=== PATIENT | female | born 1950 | race Caucasian/White ===

== ENCOUNTER 2023-09-02 15:01 | Outpatient (RCR) | payer OTHER, SELFPAY | END 2023-09-02 23:59 | disposition home or self-care (01) | LOC: RPT 15:01 | PROVIDERS: ATTENDING PHYSICIAN Nurse Practitioner | DX: N39.3 Stress incontinence (female) (male) (principal); M62.89 Other specified disorders of muscle; Z73.6 Limitation of activities due to disability | CPT/HCPCS: 97014; 97110; 97112; 97140; 97163; 97530 ==

== ENCOUNTER 2023-10-06 12:55 | Outpatient (RCR) | payer OTHER, SELFPAY | END 2023-10-06 23:59 | disposition home or self-care (01) | LOC: RPT 12:55 | PROVIDERS: ATTENDING PHYSICIAN Nurse Practitioner | DX: N39.3 Stress incontinence (female) (male) (principal); M62.89 Other specified disorders of muscle; Z73.6 Limitation of activities due to disability | CPT/HCPCS: 97014; 97112; 97140; 97530 ==

== ENCOUNTER 2023-11-03 13:05 | Outpatient (RCR) | payer OTHER, SELFPAY | END 2023-11-03 23:59 | disposition home or self-care (01) | LOC: RPT 13:05 | PROVIDERS: ATTENDING PHYSICIAN Nurse Practitioner | DX: N39.3 Stress incontinence (female) (male) (principal); M62.89 Other specified disorders of muscle; Z73.6 Limitation of activities due to disability | CPT/HCPCS: 97110; 97112; 97530 ==

== ENCOUNTER → 2023-11-05 13:28 | Outpatient (REF) | payer OTHER, SELFPAY ==
[2023-11-05 14:39] LABS: Urine Albumin Negative (Neg - Trace); Urine Bilirubin Negative (Negative); Urine Character Clear (Clear); Urine Color Yellow; Urine Glucose Negative (Negative); Urine Ketone Negative (Negative); Urine Leukocyte Negative (Negative); Urine Nitrite Negative (Negative); Urine Occult Blood Negative (Negative); Urine Urobilinogen Negative (Neg - 1+)
== END ==
LOC: CLAB 13:28
PROVIDERS: ATTENDING PHYSICIAN Urology
DX: R15.9 Full incontinence of feces (principal)
CPT/HCPCS: 36415; 81003; 87086

== ENCOUNTER → 2023-11-26 09:15 | Outpatient (REF) | payer OTHER, SELFPAY | LOC: HWRAD 09:15 | PROVIDERS: ATTENDING PHYSICIAN Urology; FAMILY PHYSICIAN Nurse Practitioner | DX: R15.9 Full incontinence of feces (principal); N39.3 Stress incontinence (female) (male); M62.89 Other specified disorders of muscle; N32.81 Overactive bladder; N30.10 Interstitial cystitis (chronic) without hematuria | CPT/HCPCS: 76770; 76856 ==

== ENCOUNTER 2023-12-04 06:36 | Outpatient (RCR) | payer OTHER, SELFPAY | END 2023-12-04 23:59 | disposition home or self-care (01) | LOC: RPT 06:36 | PROVIDERS: ATTENDING PHYSICIAN Nurse Practitioner | DX: N39.3 Stress incontinence (female) (male) (principal); M62.89 Other specified disorders of muscle; Z73.6 Limitation of activities due to disability | CPT/HCPCS: 97014; 97110; 97112; 97140; 97530 ==

== ENCOUNTER 2023-12-25 15:12 | Outpatient (RCR) | payer OTHER, SELFPAY | END 2023-12-25 23:59 | disposition home or self-care (01) | LOC: RPT 15:12 | PROVIDERS: ATTENDING PHYSICIAN Nurse Practitioner | DX: N39.3 Stress incontinence (female) (male) (principal); M62.89 Other specified disorders of muscle; Z73.6 Limitation of activities due to disability | CPT/HCPCS: 97112; 97140; 97530 ==

== ENCOUNTER 2024-01-22 13:56 | Outpatient (RCR) | payer OTHER, SELFPAY | END 2024-01-22 23:59 | disposition home or self-care (01) | LOC: RPT 13:56 | PROVIDERS: ATTENDING PHYSICIAN Nurse Practitioner | DX: N39.3 Stress incontinence (female) (male) (principal); M62.89 Other specified disorders of muscle; Z73.6 Limitation of activities due to disability | CPT/HCPCS: 97110; 97530 ==

== ENCOUNTER → 2024-07-01 13:15 | Outpatient (REF) | payer OTHER, SELFPAY | LOC: HWWDC 13:15 | PROVIDERS: ATTENDING PHYSICIAN Nurse Practitioner | DX: Z12.31 Encounter for screening mammogram for malignant neoplasm of breast (principal) | CPT/HCPCS: 77063; 77067 ==

== ENCOUNTER → 2024-09-16 15:39 | Outpatient (REF) | payer OTHER, SELFPAY | LOC: HWRAD 15:39 | PROVIDERS: ATTENDING PHYSICIAN Internal Medicine Critical Care Medicine; FAMILY PHYSICIAN Nurse Practitioner | DX: J45.30 Mild persistent asthma, uncomplicated (principal) | CPT/HCPCS: 71046 ==

== ENCOUNTER → 2024-11-25 10:51 | Outpatient (REF) | payer OTHER, SELFPAY | LOC: HWRAD 10:51 | PROVIDERS: ATTENDING PHYSICIAN Family Medicine | DX: J44.9 Chronic obstructive pulmonary disease, unspecified (principal); J45.991 Cough variant asthma | CPT/HCPCS: 71046 ==

== ENCOUNTER 2025-02-01 06:13 | Outpatient (RCR) | payer OTHER, SELFPAY | END 2025-02-01 23:59 | disposition home or self-care (01) | LOC: RPT 06:13 | PROVIDERS: ATTENDING PHYSICIAN Family Medicine | DX: N39.46 Mixed incontinence (principal); M62.89 Other specified disorders of muscle; Z73.6 Limitation of activities due to disability | CPT/HCPCS: 97163; 97530 ==

== ENCOUNTER 2025-02-14 11:04 | Outpatient (RCR) | payer OTHER, SELFPAY | END 2025-02-14 23:59 | disposition home or self-care (01) | LOC: RPT 11:04 | PROVIDERS: ATTENDING PHYSICIAN Family Medicine | DX: N39.46 Mixed incontinence (principal); M62.89 Other specified disorders of muscle; Z73.6 Limitation of activities due to disability | CPT/HCPCS: 97014; 97112; 97530 ==

== ENCOUNTER → 2025-03-02 10:48 | Outpatient (REF) | payer OTHER, SELFPAY | LOC: HWRAD 10:48 | PROVIDERS: ATTENDING PHYSICIAN Family Medicine | DX: Z78.0 Asymptomatic menopausal state (principal) | CPT/HCPCS: 77080 ==

== ENCOUNTER 2025-03-05 21:47 | Emergency (ER) | payer OTHER, SELFPAY ==
[2025-03-05 21:50] VITALS: BP 191/77
[2025-03-05 22:11] VITALS: BMI 24.2
--- NOTE | 2025-03-05 22:23 | EDRN ---
Pt says she was feeling lightheaded, brain foggy and nauseous. Pt's daughter suggested she take her bp - 162/65 at 1800. Pt thought she might be dehydrated so she drank water. Pt felt worse and checked her bp - 180/85 approximately. Pt called
doctor and was advised to be evaluated. Pt takes her metoprolol at nighttime and has not taken it yet. Pt has slight headache. No vomiting, fever/chills, speech disturbance. Pt says she has had trouble reading for few days - pt wears glasses and
adds her glasses are currently dirty. Pt's eyes have felt 'burny.'
[2025-03-05 22:31] VITALS: BP 170/60
[2025-03-05 22:46] VITALS: BP 161/70
[2025-03-05 22:46] LABS: % Basophils 0.2 % (0-2); % Eosinophils 0.8 % (0-6); % Immature Granulocytes 0.2 % (0-0.5); % Lymphocytes 32.6 % (20.5-51.1); % Monocytes 9.4 % (1.7-9.3); % Neutrophils 56.8 % (42.2-75.2); Absolute Lymphocytes 1.7 10^3/uL (1.2-3.4); Absolute Monocytes 0.5 10^3/uL (0.1-0.6); Absolute Neutrophils 2.9 10^3/uL (1.4-6.5); Hematocrit 35.4 % (37.0-47.0); Hemoglobin 12.3 g/dL (12.0-16.0); Mean Corp Hgb Conc. 34.7 g/dL (33.0-37.0); Mean Corpuscular Volume 86.3 fL (81.0-99.0); Mean Platelet Volume 9.7 fL (7.4-10.4); Nucleated Red Blood Cells % 0 %; Platelet Count 232 10^3/uL (130-400); Red Cell Dist. Width 12.2 % (11.5-14.5); White Blood Cell Count 5.1 10^3/uL (4.8-10.8)
[2025-03-05 23:00] VITALS: BP 164/62
[2025-03-05 23:09] LABS: ALT (SGPT) 16 U/L (0-35); AST (SGOT) 21 U/L (14-36); Albumin 4.1 g/dl (3.5-5.0); Alkaline Phosphatase 56 U/L (38-126); Blood Urea Nitrogen 13 mg/dl (7-17); Calcium 9.2 mg/dl (8.4-10.2); Carbon Dioxide 29 mmol/L (22-30); Chloride 102 mmol/L (98-107); Estimated Creatinine Clearance 57 ml/min; Glucose 91 mg/dl (70-99); Potassium 3.8 mmol/L (3.5-5.1); Sodium 135 mmol/L (135-145); Total Bilirubin 0.7 mg/dl (0.2-1.3); Total Protein 6.6 g/dl (6.3-8.2); eGFR > 60.00
--- NOTE | 2025-03-05 23:28 | ED.GENMED ---
History of Present Illness
General
Chief Complaint: Blood Pressure Problem
Source: patient
Exam Limitations: none
Time Seen by Provider: 03/05/25 23:12
Nursing documentation reviewed up to this point in time: agreed with
History of Present Illness
History of Present Illness:
75-year-old female with history as noted presents to the emergency room for evaluation of hypertension. Patient says that this evening she was feeling 'not quite right' and so she checked her blood pressure and it was very high which prompted her
to come to the ER. Patient reports that she had mild headache and felt mildly lightheaded. She did have some transient tightness in the chest as well. She denies any other complaints. She says she feels generally well here. She has a history of
hypertension and is on metoprolol 25 mg daily with no recent adjustments. She has been generally compliant but has not taken her nighttime dose yet.
Review of Systems
Review of Systems
All Other Systems: ROS reviewed and negative except as documented in HPI and ROS
Constitutional: Denies fever
Respiratory: Denies trouble breathing
Cardiac: Reports chest pain
ABD/GI: Reports nausea; Denies abdominal pain or vomiting
Musculoskeletal: Denies neck pain or back pain
Neurological: Reports dizzy and headache
Phy Exam
Physical Exam
Physical Exam:
General: Awake, alert, oriented x3; no acute distress
Head: Normocephalic, atraumatic
Eyes: Conjunctiva normal, EOMI, pupils equal round and reactive to light bilaterally
Throat: Airway intact, handling secretions
Neck: Trachea midline, supple without meningismus
Lungs: Clear to auscultation bilaterally, no wheezing, rales, rhonchi
Heart: Regular rate and rhythm, no murmurs, gallops, or rubs
Abd: Soft, non distended, nontender
Neuro: Cranial nerves intact, speech fluid, motor and sensory intact in all extremities
Extremities: No edema in extremities, equal pulses in all extremities
Scores
Heart Failure Risk
Heart Failure Risk Score: Not Applicable
Heart Score for Chest Pain Patients
STEMI patient?: Not applicable
Withdrawal Assessment of Alcohol
Withdrawal Assessment Completed?: Not applicable
Course
Orders/Labs/Results
Orders:
Orders
03/05/25 21:53
Electrocardiogram (*1) Urgent
Reason for Study: Hypertension, Benign
EKG- Treatment ONCE
03/05/25 22:31
Complete Blood Count/With Diff Urgent
Comprehensive Metabolic Panel Urgent
Troponin I Urgent
03/06/25 00:00
CT Head W/o Iv Contrast Urgent
Reason For Exam: headache/dizziness/high BP
03/06/25 00:39
Metoprolol Xl [Toprol Xl] 25 mg PO NOW STA
03/06/25 01:32
Troponin I Urgent
Abnormal Lab Results
03/05/25
22:31
RBC 4.10 L 10^6/uL
(4.20-5.40)
Hct 35.4 L %
(37.0-47.0)
Monocytes % 9.4 H %
(1.7-9.3)
03/05/25 22:31
03/05/25 22:31
Vital Signs
Initial and Last Documented VS:
Initial Vital Signs
Temp Pulse Resp BP Pulse Ox
36.8 C 67 20 191/77 99
03/05/25 21:50 03/05/25 21:50 03/05/25 21:50 03/05/25 21:50 03/05/25 21:50
Last Documented Vital Signs
Temp Pulse Resp BP Pulse Ox
36.8 C 66 14 158/61 99
03/05/25 21:50 03/06/25 02:00 03/05/25 22:31 03/06/25 02:00 03/05/25 23:28
MDM/Problems Addressed
Differential Diagnosis Includes:
Hypertension
MDM/Problems Addressed:
75-year-old female presents for evaluation of hypertension this evening�she had some vague symptoms that seem to resolved is mainly concerned about her blood pressure. Blood pressure 191/77 here. She has not yet taken her nighttime meds. Will
plan to dose with nighttime meds. Check screening labs. Check troponins and cardiogram. Check CT head. Reassess after the above.
Labs reviewed: CBC and CMP unremarkable. Serial troponins are negative. EKG sinus rhythm no acute ischemia. CT head no acute pathology. Clinical reassessment after taking her nighttime meds blood pressure down to 158/61. Patient feeling well.
Ambulatory without issue. Stable for discharge to follow-up with her primary care physician. Will increase her dose of metoprolol. Patient comfortable with this plan. All questions answered.
Chronic conditions affecting care:
Hypertension
Acute Exacerbation and/or Progression of Chronic Illness:
Acutely hypertensive treated as above
Acute Exacerbation and/or Progression of Chronic Illness: HTN
*Radiology
Radiology exam reviewed: radiology read reviewed
*Pulse Oximetry
SaO2: 99
Oxygen Mode of Delivery: Room air
Patient hypoxic: no (99%)
*EKG
Interpreted by ED Provider?: Yes
Heart Rate: 68
Rate: normal
Rhythm: sinus and PAC's
[place]: normal axis
Interval: normal interval
QRS Pattern: normal QRS
Ischemia: no ischemia
*Critical Care Note
Total Time (30-74mins, 75-104mins- exclusive of procedures): Not Applicable
Data Reviewed
Review of Other/Old Records Reveals: Labs and Records
Source: patient and records
ED Attending Note
-
Portions of this chart may have been created with voice recognition software.� Occasional wrong word or��sound alike� substitutions may have occurred due to the inherent limitations of voice recognition software.
Discharge Plan
Departure
Patient Disposition: Home (Routine Discharge)
Date of Disposition: 06/30/25
Time of Disposition: 02:42
Patient with high blood pressure during this ER visit?: Yes
Discharge Problem:
Dizziness, Hypertension
Instructions: Dizziness, BLOOD PRESSURE
Prescriptions:
New
metoprolol succinate [Toprol XL] 25 mg tablet extended release 24 hr
37.5 mg PO DAILY 30 Days Qty: 45 0RF
No Action
trazodone 100 mg Tablet
100 mg PO HS
levothyroxine [Synthroid] 50 mcg Tablet
50 mcg PO MOTUTHFRSA
levothyroxine [Synthroid] 50 mcg Tablet
100 mcg PO SUWE
raloxifene 60 mg Tablet
60 mg PO DAILY
montelukast 10 mg Tablet
10 mg PO DAILY
metoprolol succinate 25 mg Tablet Extended Release 24 Hr
25 mg PO DAILY
estradiol 0.01 % (0.1 mg/gram) Cream
1 appful VAGINAL .2XSPERWEEK
fluticasone propionate [Flonase] 50 mcg/actuation [place],Suspension
2 spray INTRANASAL BID
escitalopram oxalate [Lexapro] 20 mg Tablet
20 mg PO DAILY
lisdexamfetamine [Vyvanse] 30 mg Capsule
30 mg PO DAILY
dexlansoprazole 60 mg Capsule,Biphase Delayed Releas
60 mg PO DAILY
PreserVision AREDS-2 250-90-40-1 mg Capsule
1 tab PO BID
Xiidra 5 % Dropperette
1 drp BOTH EYES BID
Trelegy Ellipta 200-62.5-25 mcg Blister With Device
1 inh INHALATION DAILY
Gemtesa 75 mg Tablet
75 mg PO DAILY
Calcium + Vitamin D
1 tab PO DAILY
Referrals:
Jacqueline Aguilera MD [Family Provider, Family Practice] - Follow up in 2-3 days
Activity Restrictions/Additional Instructions:
Thank you for visiting the Emergency Department at [facility].
1. Please schedule a follow up appointment as directed. Call first thing tomorrow morning to make an appointment.
2. If indicated, please take your medications as instructed and indicated on discharge paperwork.
3. If any of your symptoms do not improve, or persist, or become more severe within 6-12 hours, please return to the emergency department for further care.
4. Please return to the emergency department if you develop a headache, neck pain/stiffness, fever greater than 100.4F, chest pain, shortness of breath, persistent nausea, vomiting, slurred speech, difficulty walking, numbness/tingling, weakness,
signs of infection or any other symptoms that are worrisome to you.
Please call [phone] if you have any questions.
Interventions
Interventions:
*Risk Screen - Suicide Last Done: 03/05/25 22:11
*General Assessment Last Done: 03/05/25 21:50
*Neglect/Abuse Screening Last Done: 03/05/25 22:11
*ED- Fall Risk Assessment Last Done: 03/05/25 22:42
*Nursing Disposition Last Done: 03/06/25 03:07
ED- Cardiac Assessment Last Done: 03/05/25 22:42
ED- Neurological Assessment Last Done: 03/05/25 22:42
ED- Pulmonary Assessment Last Done: 03/05/25 22:42
Discharge Date and Time
Discharge Date/Time: 03/06/25 03:07
Print Language: LIBERIAN
[2025-03-05 23:39] LABS: Troponin I < 0.012 ng/ml
[2025-03-06] VITALS: BP 178/72
[2025-03-06 01:27] VITALS: BP 159/59
[2025-03-06] MEDS: TOPROL XL 25 MG PO (01:29)
[2025-03-06 01:30] VITALS: BP 159/62
[2025-03-06 02:00] VITALS: BP 158/61
[2025-03-06 02:08] LABS: Troponin I < 0.012 ng/ml
== END 2025-03-06 03:07 | disposition home or self-care (01) ==
LOC: EMR 21:47
PROVIDERS: Emergency Medicine; EMERGENCY PHYSICIAN Emergency Medicine; FAMILY PHYSICIAN Family Medicine
DX: R42 Dizziness and giddiness (principal); I10 Essential (primary) hypertension
CPT/HCPCS: 99284; 70450; 80053; 84484; 85025; 93005

== ENCOUNTER 2025-03-23 15:28 | Outpatient (RCR) | payer OTHER, SELFPAY | END 2025-03-23 23:59 | disposition home or self-care (01) | LOC: RPT 15:28 | PROVIDERS: ATTENDING PHYSICIAN Family Medicine | DX: N39.46 Mixed incontinence (principal); M62.89 Other specified disorders of muscle; Z73.6 Limitation of activities due to disability | CPT/HCPCS: 97110; 97112; 97530 ==

== ENCOUNTER → 2025-03-30 07:50 | Outpatient (REF) | payer OTHER, SELFPAY | LOC: EMG 07:50 | PROVIDERS: ATTENDING PHYSICIAN Physical Medicine & Rehabilitation; FAMILY PHYSICIAN Family Medicine | DX: R20.0 Anesthesia of skin (principal) | CPT/HCPCS: 95886; 95911 ==

== ENCOUNTER → 2025-05-03 06:41 | Outpatient (REF) | payer OTHER, SELFPAY | LOC: MRI 3T 06:41 | PROVIDERS: ATTENDING PHYSICIAN Physical Medicine & Rehabilitation; FAMILY PHYSICIAN Family Medicine | DX: M54.12 Radiculopathy, cervical region (principal); M54.16 Radiculopathy, lumbar region | CPT/HCPCS: 72141; 72148 ==

== ENCOUNTER 2025-05-04 13:52 | Outpatient (RCR) | payer OTHER, SELFPAY | END 2025-05-04 23:59 | disposition home or self-care (01) | LOC: RPT 13:52 | PROVIDERS: ATTENDING PHYSICIAN Family Medicine | DX: N39.46 Mixed incontinence (principal); M62.89 Other specified disorders of muscle; Z73.6 Limitation of activities due to disability | CPT/HCPCS: 97014; 97110; 97112; 97140; 97530 ==

== ENCOUNTER 2025-05-11 14:08 | Outpatient (RCR) | payer OTHER, SELFPAY | END 2025-05-11 23:59 | disposition home or self-care (01) | LOC: RPT 14:08 | PROVIDERS: ATTENDING PHYSICIAN Family Medicine | DX: N39.46 Mixed incontinence (principal); M62.89 Other specified disorders of muscle; Z73.6 Limitation of activities due to disability | CPT/HCPCS: 97014; 97112; 97530 ==

== ENCOUNTER 2025-06-06 11:11 | Outpatient (RCR) | payer OTHER, SELFPAY | END 2025-06-06 23:59 | disposition home or self-care (01) | LOC: RPT 11:11 | PROVIDERS: ATTENDING PHYSICIAN Physical Medicine & Rehabilitation; FAMILY PHYSICIAN Family Medicine | DX: M54.12 Radiculopathy, cervical region (principal); M54.16 Radiculopathy, lumbar region; M48.061 Spinal stenosis, lumbar region without neurogenic claudication; R20.0 Anesthesia of skin; Z73.6 Limitation of activities due to disability; M62.838 Other muscle spasm; M40.202 Unspecified kyphosis, cervical region | CPT/HCPCS: 97010; 97110; 97140; 97162 ==

== ENCOUNTER 2025-06-22 08:37 | Outpatient (RCR) | payer OTHER, SELFPAY | END 2025-06-22 23:59 | disposition home or self-care (01) | LOC: RPT 08:37 | PROVIDERS: ATTENDING PHYSICIAN Family Medicine | DX: N39.46 Mixed incontinence (principal); M62.89 Other specified disorders of muscle; Z73.6 Limitation of activities due to disability | CPT/HCPCS: 97110; 97530 ==

== ENCOUNTER 2025-07-05 11:15 | Outpatient (RCR) | payer OTHER, SELFPAY | END 2025-07-05 23:59 | disposition home or self-care (01) | LOC: RPT 11:15 | PROVIDERS: ATTENDING PHYSICIAN Physical Medicine & Rehabilitation; FAMILY PHYSICIAN Family Medicine | DX: M54.12 Radiculopathy, cervical region (principal); M54.16 Radiculopathy, lumbar region; M48.061 Spinal stenosis, lumbar region without neurogenic claudication; R20.0 Anesthesia of skin; Z73.6 Limitation of activities due to disability; M62.838 Other muscle spasm; M40.202 Unspecified kyphosis, cervical region; R42 Dizziness and giddiness | CPT/HCPCS: 97010; 97110; 97112; 97140 ==

== ENCOUNTER 2025-08-02 12:51 | Outpatient (RCR) | payer OTHER, SELFPAY | END 2025-08-02 23:59 | disposition home or self-care (01) | LOC: RPT 12:51 | PROVIDERS: ATTENDING PHYSICIAN Physical Medicine & Rehabilitation; FAMILY PHYSICIAN Family Medicine | DX: M54.12 Radiculopathy, cervical region (principal); M54.16 Radiculopathy, lumbar region; M48.061 Spinal stenosis, lumbar region without neurogenic claudication; R20.0 Anesthesia of skin; Z73.6 Limitation of activities due to disability; M62.838 Other muscle spasm; M40.202 Unspecified kyphosis, cervical region | CPT/HCPCS: 97110; 97112; 97140 ==

== ENCOUNTER → 2025-08-09 12:20 | Outpatient (REF) | payer OTHER, SELFPAY | LOC: WDC 12:20 | PROVIDERS: ATTENDING PHYSICIAN Family Medicine | DX: Z12.31 Encounter for screening mammogram for malignant neoplasm of breast (principal) | CPT/HCPCS: 77063; 77067 ==

== ENCOUNTER 2025-08-18 07:38 | Outpatient (RCR) | payer OTHER, SELFPAY | END 2025-08-18 23:59 | disposition home or self-care (01) | LOC: RPT 07:38 | PROVIDERS: ATTENDING PHYSICIAN Physical Medicine & Rehabilitation; FAMILY PHYSICIAN Family Medicine | DX: M54.12 Radiculopathy, cervical region (principal); M54.16 Radiculopathy, lumbar region; M48.061 Spinal stenosis, lumbar region without neurogenic claudication; R20.0 Anesthesia of skin; Z73.6 Limitation of activities due to disability; M62.838 Other muscle spasm; M40.202 Unspecified kyphosis, cervical region; M48.02 Spinal stenosis, cervical region; R42 Dizziness and giddiness | CPT/HCPCS: 97110; 97112; 97140 ==

== ENCOUNTER → 2025-09-03 06:41 | Outpatient (REF) | payer OTHER, SELFPAY | LOC: PAVMRI 06:41 | PROVIDERS: ATTENDING PHYSICIAN Psychiatry & Neurology Neurology; FAMILY PHYSICIAN Family Medicine | DX: R41.89 Other symptoms and signs involving cognitive functions and awareness (principal); R42 Dizziness and giddiness | CPT/HCPCS: 70551 ==